=== PATIENT | male | born 1985 | race Two or more races ===

== ENCOUNTER 2017-03-26 03:11 | Emergency (ER) | payer MEDICAID ==
[~2017-03-26] VITALS: Ht 167.6 cm; Wt 95.3 kg
[2017-03-26 04:24] VITALS: BP 132/77
[2017-03-26] MEDS ORDERED: ASPIRIN 81MG TABLET PO STA (04:24)
[2017-03-26] MEDS ORDERED: NITROGLYCERIN 0.4MG TABLET SL SL PRN (04:30)
[2017-03-26] MEDS ORDERED: LORAZEPAM 2MG/ML CPJ IV ONE (04:45)
[2017-03-26 05:36] LABS: BASOPHILS % 0.5 % (0.0-2.0); EOSINOPHILS % 0.3 % (0.0-5.0); HEMATOCRIT. 44.1 % (42.0-52.0); HEMOGLOBIN. 14.9 g/dL (14.0-18.0); LYMPHOCYTES % 13.6 % (20.0-50.0); MEAN CORPUSCULAR HGB CONC 33.8 g/dL (31.0-37.0); MEAN PLATELET VOLUME 8.8 fl (7.4-10.4); MONOCYTES % 6.2 % (2.0-8.0); NEUTROPHILS % 79.4 % (40.0-76.0); PLATELET 250 x1000/uL (130-400); RED BLOOD CELL COUNT 5.31 mill/uL (4.7-6.1); RED CELL DISTRIBUTION WIDTH 13.4 % (11.6-14.6); WHITE BLOOD COUNT 13.9 x1000/uL (4.5-11.0)
[2017-03-26 05:44] LABS: INR 1.1; PARTIAL THROMBOPLASTIN TIME 27.9 sec (24.0-34.0)
[2017-03-26 05:45] LABS: ANION GAP 14; CALCIUM 9.3 mg/dL (8.5-10.1); CARBON DIOXIDE 26 mEq/L (21-32); CHLORIDE 105 mEq/L (98-107); INDEX HEMOLYSI 1 (1-3); INDEX ICTERIC 1 (1-4); INDEX LIPEMIC 1 (1-3); TROPONIN I < 0.02 ng/mL (0.00-0.04); UREA NITROGEN BLOOD 13 mg/dL (7-21); eGFR > 60 mL/min (>60)
== END 2017-03-26 06:18 | disposition left against medical advice (07) ==
LOC: ER 03:18
DX: F14.188 Cocaine abuse with other cocaine-induced disorder (principal); R07.89 Other chest pain; F12.90 Cannabis use, unspecified, uncomplicated; F17.210 Nicotine dependence, cigarettes, uncomplicated
CPT/HCPCS: 36415; 71010; 80048; 84484; 85025; 85610; 85730; 93005; 96374; 99285; J2060; Z7610